=== PATIENT | female | born 1950 | race Caucasian/White ===

== ENCOUNTER 2017-03-12 07:24 | Day surgery (SDC) | payer MEDICARE, OTHER ==
[2017-03-12] MEDS ORDERED: TRAM50TA PO (07:51)
[2017-03-12] MEDS ORDERED: CLIN300C5 PO (07:51)
[2017-03-12] MEDS ORDERED: ATOR40TA16 PO (07:51)
[2017-03-12] MEDS ORDERED: TOPR50TA PO (07:51)
[2017-03-12] MEDS ORDERED: PLAV75TA29 PO (07:51)
[2017-03-12] MEDS ORDERED: CHLORHEXIDINE GLUCONATE 2 % 1 PACK (2 CLOTHS) TOPICAL SCH ×2 (08:30→09:00)
[2017-03-12] MEDS ORDERED: MUPIROCIN 2% OINT 1 APPLIC/GM SYR NASAL SCH ×2 (08:30→09:00)
[2017-03-12] MEDS ORDERED: POVIDONE IODINE 5% (ANTISEPSIS KIT) 4 APPLICATIONS EACH NARE SCH ×2 (08:30→09:00)
[2017-03-12] MEDS ORDERED: NS 1000 ML IV SCH ×2 (08:30→09:00)
[2017-03-12] MEDS ORDERED: VANCOMYCIN 1000 MG/NS 250 ML IV SCH ×4 (08:30→09:00)
[2017-03-12] MEDS ORDERED: MIDAZOLAM HCL 5 MG/ML VIAL (1 ML) ONE (08:54)
--- NOTE | 2017-03-12 10:01 | MP ---
cc: RAO ZHAO M.D. 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 POSTOPERATIVE DIAGNOSIS Status post CVA, suspected possible atrial fibrillation. PROCEDURE Insertion of insertable loop recorder. DESCRIPTION OF PROCEDURE The patient received a gram of vancomycin for pre-op antibiotics because of a history of splenectomy and prosthetic aortic valve. The patient was prepped and draped in sterile fashion. Using 1% lidocaine for local anesthesia, a [employer] insertable loop recorder was inserted in standard fashion without difficulty. The device is sensing well. The device is a [employer] LINQ, model LNQ11, serial number [id number]. Measured voltage was 0.21 volts. There were no complications. MD TOMÁS Oliva/JORDAN /9:39 AM /9:53 AM
== END 2017-03-12 10:24 | disposition home or self-care (01) ==
LOC: HSDC 07:24 → HDIC 07:28 → HSDC 10:24
PROVIDERS: ATTEND Internal Medicine Cardiovascular Disease
DX: I48.91 Unspecified atrial fibrillation (principal); I10 Essential (primary) hypertension; Z95.2 Presence of prosthetic heart valve; Z79.01 Long term (current) use of anticoagulants; E78.00 Pure hypercholesterolemia, unspecified; I63.9 Cerebral infarction, unspecified
CPT/HCPCS: 33282; C1764; J2250; J3010; J3370; J7050